=== PATIENT | male | born 1980 | race Two or more races ===

== ENCOUNTER 2021-01-05 10:06 | Outpatient (CLI) | payer OTHER ==
[~2021-01-05 10:06] MED LIST: LOVASTATIN10 MG
== END 2021-01-05 10:07 | disposition home or self-care (01) ==
LOC: LAB 10:06
PROVIDERS: ATTEND Radiology Diagnostic Radiology
DX: I25.3 Aneurysm of heart (principal)

== ENCOUNTER 2021-01-06 09:06 | Outpatient (CLI) | payer OTHER | END 2021-01-06 09:15 | disposition home or self-care (01) | LOC: TOM 09:06 → EDSEX 09:45 → TOM 09:45 | PROVIDERS: ATTEND Internal Medicine Pulmonary Disease | DX: I25.3 Aneurysm of heart (principal) ==